=== PATIENT | male | born 1985 | race Caucasian/White ===

== ENCOUNTER 2023-03-20 14:07 | Emergency (ER) | payer BC, SELFPAY ==
[2023-03-20 14:12] VITALS: BP 159/95
[2023-03-20 14:58] LABS: % Basophils 0.7 % (0-2); % Eosinophils 2.8 % (0-6); % Immature Granulocytes 0.2 % (0-0.5); % Lymphocytes 26.1 % (20.5-51.1); % Monocytes 9.8 % (1.7-9.3); % Neutrophils 60.4 % (42.2-75.2); Absolute Eosinophils 0.1 10^3/uL (0-0.7); Absolute Lymphocytes 1.2 10^3/uL (1.2-3.4); Absolute Monocytes 0.5 10^3/uL (0.1-0.6); Absolute Neutrophils 2.8 10^3/uL (1.4-6.5); Hematocrit 43.4 % (39.0-52.0); Hemoglobin 15.5 g/dL (13.0-18.0); Mean Corp Hgb Conc. 35.7 g/dL (33.0-37.0); Mean Corpuscular Hgb 31.3 pg (27.0-31.0); Mean Corpuscular Volume 87.5 fL (80.0-94.0); Mean Platelet Volume 9.7 fL (7.4-10.4); Nucleated Red Blood Cells % 0 % (-); Platelet Count 164 10^3/uL (130-400); Red Blood Cell Count 4.96 10^6/uL (4.70-6.10); Red Cell Dist. Width 12.7 % (11.5-14.5); White Blood Cell Count 4.6 10^3/uL (4.8-10.8)
[2023-03-20 15:10] LABS: APTT 33.1 Sec (23.4-35.0); INR 1.02; PT 13.6 Sec (11.4-14.6)
[2023-03-20 15:21] LABS: ALT (SGPT) 36 U/L (0-50); AST (SGOT) 32 U/L (17-59); Albumin 4.9 g/dl (3.5-5.0); Alkaline Phosphatase 55 U/L (38-126); Blood Urea Nitrogen 14 mg/dl (9-20); Calcium 9.2 mg/dl (8.4-10.2); Carbon Dioxide 31 mmol/L (22-30); Chloride 105 mmol/L (98-107); Glucose 81 mg/dl (70-99); Potassium 3.8 mmol/L (3.5-5.1); Sodium 140 mmol/L (135-145); Total Bilirubin 1.4 mg/dl (0.2-1.3); Total Protein 7.5 g/dl (6.3-8.2); eGFR > 60.00
[2023-03-20 15:26] LABS: Troponin I < 0.012 ng/ml
[2023-03-20 15:36] VITALS: BMI 24.9
--- NOTE | 2023-03-20 15:54 | ED.GENMED ---
History of Present Illness
General
Chief Complaint: Extremity Pain (non-traumatic)
Source: patient
Exam Limitations: none
Time Seen by Provider: 03/20/23 15:42
Nursing documentation reviewed up to this point in time: agreed with
Travel History
Have you had any contact with someone who has COVID-19?: No
Do you have any symptoms of coronavirus? Fever > 100 degrees, chills, cough, shortness of breath, sore throat, loss of taste or smell, muscle aches, or headache?: No
History of Present Illness
History of Present Illness:
Patient to ED with complaint of left sided chest pain with radiation to left axilla and left arm,. Symptoms started a few weeks ago and continue. No relieft with ibuprofen. No SOB but hurts to take a deep breath. No cough. No history of trauma.
Advised by PCP to come to ED for eval.
Past History
Past History
ED Past Medical History: Psychiatric (anxiety,, panic attacks)
ED Past Surgical History: Other (jaw surgery as child)
Social History
Tobacco: Non-smoker
Alcohol: Occasional
Drug: None
Personal:
Review of Systems
Review of Systems
Allergies reviewed?: Yes
All Other Systems: ROS reviewed and negative except as documented in HPI and ROS
Constitutional: Reports no symptoms
EENT: Reports no symptoms
Respiratory: Reports no symptoms
Cardiac: Reports chest pain (left chest pain)
ABD/GI: Reports no symptoms
: Reports no symptoms
Skin: Reports no symptoms
Neurological: Reports no symptoms
Psychiatric: Reports no symptoms
Phy Exam
General Physical Exam
General Presentation: well appearing and no apparent distress
General age: appears stated age
General Skin: warm and dry
General Habitus: normal
General Mental: alert
General Hydration: appears well hydrated
Cardiovascular Exam
Cardiovascular Exam: regular rate/rhythm and no edema
Pulmonary Exam
Pulmonary Exam: lungs clear, no respiratory distress and chest non tender
Musculoskeletal Exam
Musculoskeletal Exam: full ROM and neuro vasc intact
Skin Exam
Skin Exam: normal color, warm/dry and no rash
Psychiatric Exam
Psychiatric Exam: normal mood/affect
Course
Orders/Labs/Results
Orders:
Orders
03/20/23 14:18
Electrocardiogram (*1) Urgent
Reason for Study: Chest Pain
EKG- Treatment ONCE
03/20/23 14:37
Complete Blood Count/With Diff Urgent
Comprehensive Metabolic Panel Urgent
PT/INR [Prothrombin Time] Urgent
PTT Urgent
Troponin I Urgent
03/20/23 15:54
CR Chest - 2 Views Urgent
Comment:
Reason For Exam: left chest pain
03/20/23 16:21
D-Dimer Urgent
Abnormal Lab Results
03/20/23
14:37
WBC 4.6 L 10^3/uL
(4.8-10.8)
MCH 31.3 H pg
(27.0-31.0)
Monocytes % 9.8 H %
(1.7-9.3)
Carbon Dioxide 31 H mmol/L
(22-30)
Total Bilirubin 1.4 H mg/dl
(0.2-1.3)
03/20/23 14:37
03/20/23 14:37
Vital Signs
Initial and Last Documented VS:
Initial Vital Signs
Temp Pulse Resp BP Pulse Ox
97.8 F 87 18 159/95 98
03/20/23 14:12 03/20/23 14:12 03/20/23 14:12 03/20/23 14:12 03/20/23 14:12
Last Documented Vital Signs
Temp Pulse Resp BP Pulse Ox
98.6 F 76 18 115/82 99
03/20/23 17:02 03/20/23 17:02 03/20/23 17:02 03/20/23 17:02 03/20/23 17:02
*Radiology
Radiology exam reviewed: radiology read reviewed
*Pulse Oximetry
Patient hypoxic: no
*Critical Care Note
Total Time (30-74mins, 75-104mins- exclusive of procedures): Not Applicable
ED Attending Note
-
Portions of this chart may have been created with voice recognition software.� Occasional wrong word or��sound alike� substitutions may have occurred due to the inherent limitations of voice recognition software.
Discharge Plan
Departure
Patient Disposition: Home (Routine Discharge)
Date of Disposition: 03/20/23
Time of Disposition: 16:57
Patient with high blood pressure during this ER visit?: No
Condition: Good
Covid-19: Not Applicable
Discharge Problem:
Chest wall pain
Instructions: Musculoskeletal Pain
Prescriptions:
No Action
No Current Medications
0
Referrals:
Darius Harrison MD [Family Provider] - Follow up in 2-3 days
Interventions
Interventions:
*Risk Screen - Suicide Last Done: 03/20/23 15:36
*General Assessment Last Done: 03/20/23 15:36
*Neglect/Abuse Screening Last Done: 03/20/23 15:36
ED- Fall Risk Assessment Last Done: 03/20/23 15:36
*ED COVID-19 Vaccine History Last Done: 03/20/23 14:12
*Nursing Disposition Last Done: 03/20/23 17:02
ED-Skin Assessment Last Done: 03/20/23 15:36
ED-Peripheral Vascular Assessment Last Done: 03/20/23 15:36
ED-Musculoskeletal Assessment Last Done: 03/20/23 15:36
Discharge Date and Time
Discharge Date/Time: 01/24/24 17:03
Musculoskeletal Injury Exam
Musculoskeletal Injury Exam
Left anterior chest:
Pain with Movement?: Moderate
Tender to palpation?: None
Soft tissue swelling?: None
External deformity and angulation?: None
Joint effusion?: None
Contusion?: None
Hematoma-local bleeding into tissue?: None
Crepitus with movement?: No
Joint instability?: No
Range of motion: Full
Distal skin color and temperature: normal-warm & good color
Capillary Refill: normal
Normal distal neurovascular exam?: Yes
[2023-03-20 16:53] LABS: D-Dimer < 0.27 ug/mlFEU (0.00-0.50)
[2023-03-20 17:02] VITALS: BP 115/82
== END 2023-03-20 17:03 | disposition home or self-care (01) ==
LOC: EMR 14:07
PROVIDERS: Emergency Medicine; Nurse Practitioner; EMERGENCY PHYSICIAN Emergency Medicine; FAMILY PHYSICIAN Family Medicine
DX: R07.89 Other chest pain (principal)
CPT/HCPCS: 99283; 71046; 80053; 84484; 85025; 85379; 85610; 85730; 93005